=== PATIENT | male | born 1990 | race Caucasian/White ===

== ENCOUNTER → 2021-08-12 | Outpatient (CLI) | payer BC ==
[~2021-08-12] MED LIST: ANAPROX DS550 MG PO; CLEOCIN150 MG PO; KEFLEX500 MG PO; ZOFRAN4 MG PO
[2021-08-12 12:22] LABS: HEMATOCRIT 47.6 % (42.0-52.0); MEAN CELL VOLUME 93.3 fl (80.0-94.0); MEAN CORPUSCULAR HGB 32.4 pg (27.0-31.0); MEAN CORPUSCULAR HGB CONC 34.7 g/dl (33.0-37.0); MEAN PLATELET VOLUME 9.8 fl (9.6-12.3); RED BLOOD COUNT 5.1 10*6/uL (4.50-5.90); RED CELL DISTRI WIDTH 12.1 % (0-14.5)
[2021-08-12 12:51] LABS: ALKALINE PHOSPHATASE 115 U/L (45-117); BUN 11 mg/dl (7-24); CHLORIDE 107 mmol/L (98-107); CREATININE 0.84 mg/dL (0.70-1.30); FREE T4 0.84 ng/dl (0.76-1.46); SODIUM 139 mmol/L (136-145)
[2021-08-12 13:00] LABS: SGOT/AST 20 IU/L (3-35); SGPT/ALT 32 U/L (12-78)
[2021-08-14 22:05] LABS: TESTOSTERONE FREE, (DIRECT) 15.6 pg/mL (8.7-25.1)
== END | disposition home or self-care (01) ==
LOC: LAB 11:55
PROVIDERS: ATTEND Family Medicine
DX: D72.829 Elevated white blood cell count, unspecified (principal); R00.2 Palpitations; E87.6 Hypokalemia

== ENCOUNTER → 2021-08-20 | Outpatient (CLI) | payer BC | END | disposition home or self-care (01) | LOC: CARD 08:00 | PROVIDERS: ATTEND Family Medicine | DX: R00.2 Palpitations (principal); R42 Dizziness and giddiness; R06.02 Shortness of breath ==

== ENCOUNTER → 2021-08-21 | Outpatient (CLI) | payer BC ==
[2021-08-21 13:53] LABS: BASO # 0.1 10*3/uL (0.0-0.1); BASO % 0.3 % (0.0-1.0); EOS # 1.3 10*3/uL (0.0-0.4); EOS % 8.9 % (1.0-4.0); HEMATOCRIT 42.6 % (42.0-52.0); LYMPH % 20.3 % (27.0-41.0); MEAN CELL VOLUME 91.8 fl (80.0-94.0); MEAN CORPUSCULAR HGB 32.1 pg (27.0-31.0); MEAN PLATELET VOLUME 9.7 fl (9.6-12.3); MONO # 0.6 10*3/uL (0.1-1.0); MONO % 4.2 % (3.0-9.0); NEUT # 9.8 10*3/uL (2.3-7.9); NEUT % 65.9 % (47.0-73.0); PLATELET COUNT AUTOMATED 276 10*3/uL (130-400); RED BLOOD COUNT 4.64 10*6/uL (4.50-5.90); RED CELL DISTRI WIDTH 12.2 % (0-14.5); WHITE BLOOD COUNT 14.9 10*3/uL (4.8-10.8)
== END | disposition home or self-care (01) ==
LOC: RAD 13:32 → LAB 13:32
PROVIDERS: ATTEND Family Medicine
DX: M54.50 Low back pain, unspecified (principal); D72.829 Elevated white blood cell count, unspecified

== ENCOUNTER → 2021-09-09 | Outpatient (CLI) | payer BC | END | disposition home or self-care (01) | LOC: CT 16:00 | PROVIDERS: ATTEND Family Medicine | DX: K57.30 Diverticulosis of large intestine without perforation or abscess without bleeding (principal) ==

== ENCOUNTER → 2022-05-12 | Outpatient (CLI) | payer BC ==
[2022-05-12 10:36] LABS: HEMATOCRIT 46.1 % (42.0-52.0); MEAN CELL VOLUME 93.5 fl (80.0-94.0); MEAN CORPUSCULAR HGB 32.3 pg (27.0-31.0); MEAN CORPUSCULAR HGB CONC 34.5 g/dl (33.0-37.0); MEAN PLATELET VOLUME 9.4 fl (9.6-12.3); RED BLOOD COUNT 4.93 10*6/uL (4.50-5.90); RED CELL DISTRI WIDTH 11.9 % (0-14.5); WHITE BLOOD COUNT 13.4 10*3/uL (4.8-10.8)
[2022-05-12 10:58] LABS: ALKALINE PHOSPHATASE 111 U/L (46-116); BUN 9 mg/dl (9-23); CHLORIDE 107 mmol/L (98-107); CHOLESTEROL 201 mg/dL (<200); LDL CHOLESTEROL 125 mg/dL (9-159); SGPT/ALT 39 U/L (10-49); TOTAL PROTEIN 6.8 gm/dL (6.0-8.0); TRIGLYCERIDES 207 mg/dl (<150)
== END | disposition home or self-care (01) ==
LOC: LAB 10:11
PROVIDERS: ATTEND Family Medicine
DX: M79.5 Residual foreign body in soft tissue (principal); R04.2 Hemoptysis; E78.00 Pure hypercholesterolemia, unspecified; D72.829 Elevated white blood cell count, unspecified; R05.9 Cough, unspecified; N52.9 Male erectile dysfunction, unspecified

== ENCOUNTER → 2022-08-05 | Day surgery (SDC) | payer BC ==
[~2022-08-05] VITALS: Ht 170.1 cm; Wt 90.7 kg
[~2022-08-05] MED LIST changes: +COZAAR50 M1 PO
[2022-08-05 08:44] VITALS: BP 127/82
[2022-08-05 11:27] VITALS: BP 136/93
[2022-08-05 11:42] VITALS: BP 137/91
[2022-08-05 11:58] VITALS: BP 131/86
[2022-08-05 12:12] VITALS: BP 124/79
[2022-08-05 12:19] VITALS: BP 135/81
== END | disposition home or self-care (01) ==
LOC: SDC 07-31 14:00
PROVIDERS: ATTEND Specialist
DX: J38.1 Polyp of vocal cord and larynx (principal); K13.79 Other lesions of oral mucosa; I10 Essential (primary) hypertension; F17.210 Nicotine dependence, cigarettes, uncomplicated; Z79.899 Other long term (current) drug therapy